=== PATIENT | female | born 1995 | race Two or more races ===

== ENCOUNTER → 2019-02-17 | Outpatient (CLI) | payer OTHER ==
[2019-02-17 16:34] LABS: BASO % 0 % (0-3); EOS # 0.2 x10^3/uL (0.0-0.7); EOS % 2 % (0-3); HEMATOCRIT 36.2 % (36.0-47.0); HEMOGLOBIN 12.2 g/dL (12.0-15.5); LYMPH # 2.4 x10^3/uL (1.0-4.8); LYMPH % 27 % (24-48); MEAN CORPUSCULAR HEMOGLOBIN 30 pg (25-35); MEAN CORPUSCULAR HGB CONC 34 g/dL (31-37); MEAN CORPUSCULAR VOLUME 90 fL (79-100); MONO # 0.4 x10^3/uL (0.0-1.1); MONO % 4 % (0-9); NEUT # 5.9 x10^3/uL (1.8-7.7); NEUT % 67 % (31-73); PLATELET COUNT 271 x10^3/uL (140-400); RED BLOOD COUNT 4.02 x10^6/uL (3.50-5.40); RED CELL DISTRIBUTION WIDTH 14.2 % (11.5-14.5); WHITE BLOOD COUNT 8.8 x10^3/uL (4.0-11.0)
[2019-02-17 17:04] LABS: PREG TEST PT QUAL POSITIVE (NEG)
== END | disposition home or self-care (01) ==
LOC: LAB 16:08
PROVIDERS: ATTEND Obstetrics & Gynecology
DX: O03.9 Complete or unspecified spontaneous abortion without complication (principal)
CPT/HCPCS: 36415; 84703; 85025

== ENCOUNTER 2020-03-21 10:57 | Observation (INO) | payer OTHER | END 2020-03-21 11:17 | disposition home or self-care (01) | LOC: 3 SO LND 10:57 | PROVIDERS: ADMIT Obstetrics & Gynecology; ATTEND Obstetrics & Gynecology | DX: O10.913 Unspecified pre-existing hypertension complicating pregnancy, third trimester (principal); Z3A.33 33 weeks gestation of pregnancy | CPT/HCPCS: 59025; G0378; G0379 ==

== ENCOUNTER 2020-04-04 10:32 | Observation (INO) | payer OTHER ==
[2020-04-04] MEDS ORDERED: IV RINGERS,LACTATED 1000ML 1,000 ML IV SCH (11:15)
--- NOTE | 2020-04-04 12:27 | RAD ---
EXAM: Obstetrics sonogram; biophysical profile. HISTORY: Gestational hypertension. weight assessment. COMPARISON: None. TECHNIQUE: Multiple grayscale images, color Doppler, and M-mode images of the uterus are obtained. FINDINGS: There is a single intrauterine gestation in cephalic presentation. The placenta grade 1 and anterior in location without evidence of placenta previa. The amount of amniotic fluid appears appropriate. A mniotic fluid index is 8.7 cm. The cervix is obscured Biometrical data: BPD = 8.72 cm for 35 weeks 1 days. HC = 31.67 cm for 35 weeks 4 days. AC = 32.79 cm for 36 weeks 5 days. FL = 7.29 cm for 30 weeks 2 days. HC/AC ratio = 0.97. Overall, the estimated sonographic gestational age is 36 weeks and 1 day for an estimated date of del sabi of 05/01/2020. The estimated date of delivery provided by the last menstrual period is 05/06/2020 . Estimated weight is 2970 grams. This corresponds with the 63rd percentile for a gestational age of 35 weeks and 3 days based on LMP. The estimated heart rate is 132 beats per minute. The anatomy is not formally assessed. T he maternal adnexal regions are not formally assessed. There is normal breathing motion, body motion and tone and there is normal amniotic fluid volume. This corresponds with a biophysical profile of 10/21. The biophysical profile exam time was 15 minutes. IMPRESSION: 1. Single intrauterine fetus in cephalic presentation with a normal heart rate and gestational age ba sed on ultrasound measurements 36 weeks and 1 day. The estimated weight is at the 63rd percenti le for a gestational age of 35 weeks and 3 days based on LMP. 2. Normal biophysical profile of 10/21. Electronically signed by: Makenna Gtz MD (04/04/2020 12:25 PM) [id number]
== END 2020-04-04 11:55 | disposition home or self-care (01) ==
LOC: 3 SO LND 10:32
PROVIDERS: ADMIT Obstetrics & Gynecology; ATTEND Obstetrics & Gynecology
DX: O13.3 Gestational [pregnancy-induced] hypertension without significant proteinuria, third trimester (principal); Z3A.35 35 weeks gestation of pregnancy
CPT/HCPCS: 59025; 76815; 76819; G0378; G0379

== ENCOUNTER 2020-04-17 15:20 | Inpatient (IN) | payer OTHER ==
[~2020-04-17] VITALS: Ht 172.7 cm; Wt 84.4 kg
[2020-04-17 16:08] LABS: BILIRUBIN,URINE NEGATIVE (NEG); CLARITY,URINE CLEAR; COLOR,URINE YELLOW; NITRITE,URINE NEGATIVE (NEG); PH,URINE 7.5 (<5.0-8.0); PROTEIN,URINE 30 mg/dL (NEG-TRACE)
[2020-04-17 16:11] LABS: CREATININE,RANDOM URINE 77.8 mg/dL (Not Establ.)
[2020-04-17 16:35] LABS: BASO # 0.1 x10^3/uL (0.0-0.2); BASO % 1 % (0-3); EOS % 0 % (0-3); HEMATOCRIT 29.6 % (36.0-47.0); HEMOGLOBIN 10.3 g/dL (12.0-15.5); LYMPH # 1.3 x10^3/uL (1.0-4.8); LYMPH % 11 % (24-48); MEAN CORPUSCULAR HEMOGLOBIN 30 pg (25-35); MEAN CORPUSCULAR HGB CONC 35 g/dL (31-37); MEAN CORPUSCULAR VOLUME 86 fL (79-100); MONO # 0.6 x10^3/uL (0.0-1.1); MONO % 5 % (0-9); NEUT # 10.3 x10^3/uL (1.8-7.7); NEUT % 83 % (31-73); PLATELET COUNT 237 x10^3/uL (140-400); RED BLOOD COUNT 3.45 x10^6/uL (3.50-5.40); RED CELL DISTRIBUTION WIDTH 14.5 % (11.5-14.5); WHITE BLOOD COUNT 12.3 x10^3/uL (4.0-11.0)
[2020-04-17] MEDS ORDERED: ACETAMINOPHEN 325 MG TABLET. PO PRN (16:45)
[2020-04-17] MEDS ORDERED: 0.9 % SODIUM CHLORIDE 10 ML DISP.SYRIN. IV PRN (16:45)
[2020-04-17] MEDS ORDERED: IBUPROFEN 400 MG TABLET. PO PRN (16:45)
[2020-04-17] MEDS ORDERED: fentaNYL PF VIAL 100 MCG/2 ML VIAL IVP PRN (16:45)
[2020-04-17] MEDS ORDERED: OXYTOCIN 30 UNIT/500 ML PREMIX 500 ML IV PRN (16:45)
[2020-04-17] MEDS ORDERED: MAGNESIUM SULFATE 2GM 50 ML IV ONE (16:45)
[2020-04-17] MEDS ORDERED: LIDOCAINE 1% PF 30 ML VIAL. INJ PRN (16:45)
[2020-04-17] MEDS ORDERED: MAGNESIUM SULFATE 4GM 100 ML IV ONE (16:45)
[2020-04-17 17:00] LABS: ALBUMIN 2.6 g/dL (3.4-5.0); ALBUMIN/GLOBULIN RATIO 0.6 (1.0-1.7); CALCIUM 8.9 mg/dL (8.5-10.1); CREATININE 0.5 mg/dL (0.6-1.0); GFR 149.1; POTASSIUM 3.4 mmol/L (3.5-5.1); TOTAL BILIRUBIN 0.3 mg/dL (0.2-1.0); TOTAL PROTEIN 6.7 g/dL (6.4-8.2)
[2020-04-17] MEDS ORDERED: DINOPROSTONE 10 MG SUPP.VAG VG ONE (18:00)
[2020-04-17] MEDS: IV RINGERS,LACTATED 1000ML 1,000 ML IV PRN (18:42)
--- NOTE | 2020-04-17 19:00 | NUR ---
24YO C EDC 05/03/20 AT 37.5 WEEKS GESTATION PRESENTS FROM DOCTORS OFFICE FOR PIH WORKUP AND INDUCTION OF LABOR. ADMITTED TO LABOR AND DELIVERY FOR CERVIDIL AND PITOCIN INDUCTION OF LABOR. Addendum: 04/18/20 at 2218 by LIZABETH WELLS RN ADMITTED AND INDUCED FOR CHRONIC HYPERTENSION.
[2020-04-17] MEDS: MAGNESIUM SULFATE 20GM 500 ML IV SCH (20:03)
[2020-04-18] MEDS: IV RINGERS,LACTATED 1000ML 1,000 ML IV PRN (04:35)
[2020-04-18] MEDS ORDERED: OXYTOCIN 30 UNIT/500 ML PREMIX 500 ML IV PRN ×2 (06:00→16:45)
[2020-04-18] MEDS: MAGNESIUM SULFATE 20GM 500 ML IV SCH ×2 (06:25→16:42)
--- NOTE | 2020-04-18 08:43 | PDOC1 ---
OB - History Hx of Present Care: Good Care Ultrasounds: Normal mid trimester US Obstetrical Complications: Pre-eclampsia Medical Complications: Other (CHTN) Past Family/Social History * Past Medical, Surgical, Family and Obstetric Histories reviewed from chart. Rubella: Immune RPR/VDRL: Negative GBS Status: Negative HBsAG: Negative OB - Chief Complaint & HPI Date of Admission: Date of Admission: Apr 17, 2020 at 15:20 Chief Complaint/History : 4 Para: 1 EGA: 37 Reason for admission: induction of labor (preeclampsia) Admission Nurse Assessment Rev: Yes OB - Admission Exam Physical Exam HEENT: Normal Heart: Regular Rate Lungs: Clear Abdomen: Gravid, Non tender, Soft Extremities: Edema Reflexes: Normal Cervical Dilatation: 2cm Effacement: 50% Station: -3 Membranes: Intact Heart Rate: Normal Accelerations: Accelerations Present Decelerations: No decelerations Contractions on Admission: None Text A: 37 wks IUP CHTN with superimposed preeclampsia P: Admit for IOL secondary to CHTN with superimposed preeclampsia. Start magnesium sulfate. Cervidil for cervical ripening, then pitocin in am. YULIET KAUFFMAN Jr, MD Apr 18, 2020 08:43
--- NOTE | 2020-04-18 16:33 | PDOC ---
VAGINAL DELIVERY DATE DATE: 04/18/20 TIME: 16:32 : 4 Para: 2 EGA: 37 VAGINAL DELIVERY: VTX VACCUM ASSISTED: No PLACENTA: Spontaneous 8/9 SEX: Male WEIGHT Weight [ pending ] Nuchal Cord: No Amniotic Fluid: Clear PAIN: Natural EPISIOTOMY: No EXTENSION: No EBL 300 ml COMPLICATIONS none CONDITION pt. stable Signs of Intrauterine Infectio: None Shoulder Dystocia: No YULIET KAUFFMAN Jr, MD Apr 18, 2020 16:33
[2020-04-18] MEDS ORDERED: TDaP (Adacel) per PROTOCOL. MC PRN (16:45)
[2020-04-18] MEDS ORDERED: 0.9 % SODIUM CHLORIDE 10 ML DISP.SYRIN. IV PRN (16:45)
[2020-04-18] MEDS ORDERED: ZOLPIDEM 5 MG TABLET. PO PRN (16:45)
[2020-04-18] MEDS ORDERED: MMR per PROTOCOL. MC PRN (16:45)
[2020-04-18] MEDS ORDERED: oxyCODONE/APAP 5/325 1 TAB TABLET PO PRN (16:45)
[2020-04-18] MEDS ORDERED: HYDROCORTISONE 1% TOPICAL OINTMENT 30GM TUBE. TP PRN (16:45)
[2020-04-18] MEDS ORDERED: ACETAMINOPHEN 325 MG TABLET. PO PRN (16:45)
[2020-04-18] MEDS ORDERED: MAGNESIUM HYDROXIDE 2,400 MG/30 ML ORAL.SUSP. PO PRN (16:45)
[2020-04-18] MEDS ORDERED: SIMETHICONE 80 MG TAB.CHEW PO PRN (16:45)
[2020-04-18] MEDS ORDERED: PHENYLEPH/MINERAL OIL/PETROLAT RECTAL OINTMENT TUBE. RC PRN (16:45)
[2020-04-18] MEDS ORDERED: diphenhydrAMINE HCL 25 MG CAPSULE PO PRN (16:45)
[2020-04-18] MEDS ORDERED: BENZOCAINE 20% TOPICAL AEROSOL SPRAY 57GM CAN. TP PRN (16:45)
[2020-04-18] MEDS ORDERED: MAG HYDROX/ALUMINUM HYD/SIMETH 30 ML ORAL.SUSP PO PRN (16:45)
[2020-04-18] MEDS: IBUPROFEN 400 MG TABLET. PO PRN (17:12)
[2020-04-18 20:00] VITALS: BP 119/73
[2020-04-18 21:00] VITALS: BP 135/72
[2020-04-18 22:00] VITALS: BP 126/64
[2020-04-18 23:00] VITALS: BP 131/88
[2020-04-19] VITALS (20 sets, daily range): BP systolic 110–139; BP diastolic 55–81
[2020-04-19] MEDS: IBUPROFEN 400 MG TABLET. PO PRN ×2 (02:03→20:34)
[2020-04-19] MEDS: MAGNESIUM SULFATE 20GM 500 ML IV SCH ×2 (02:08→12:48)
[2020-04-19] MEDS: IV RINGERS,LACTATED 1000ML 1,000 ML IV PRN (07:04)
[2020-04-19 08:12] LABS: BASO % 0 % (0-3); EOS % 0 % (0-3); HEMOGLOBIN 9.4 g/dL (12.0-15.5); LYMPH # 1.6 x10^3/uL (1.0-4.8); LYMPH % 13 % (24-48); MEAN CORPUSCULAR HEMOGLOBIN 30 pg (25-35); MEAN CORPUSCULAR HGB CONC 34 g/dL (31-37); MEAN CORPUSCULAR VOLUME 88 fL (79-100); MONO # 0.8 x10^3/uL (0.0-1.1); MONO % 6 % (0-9); NEUT # 10.4 x10^3/uL (1.8-7.7); NEUT % 81 % (31-73); PLATELET COUNT 197 x10^3/uL (140-400); RED BLOOD COUNT 3.19 x10^6/uL (3.50-5.40); RED CELL DISTRIBUTION WIDTH 14.4 % (11.5-14.5); WHITE BLOOD COUNT 12.9 x10^3/uL (4.0-11.0)
[2020-04-19 08:52] LABS: ALBUMIN 2.1 g/dL (3.4-5.0); ALBUMIN/GLOBULIN RATIO 0.6 (1.0-1.7); CALCIUM 7.3 mg/dL (8.5-10.1); CREATININE 0.4 mg/dL (0.6-1.0); GFR 192.9; POTASSIUM 3.2 mmol/L (3.5-5.1); TOTAL BILIRUBIN 0.2 mg/dL (0.2-1.0); TOTAL PROTEIN 5.5 g/dL (6.4-8.2)
[2020-04-19] MEDS ORDERED: MULTIVITAMIN with MINERAL TABLET. PO SCH (09:00)
--- NOTE | 2020-04-19 09:04 | PDOC ---
OB Progress Note Date of Service 04/19/20 Time of Evaluation 0900 Notes Pt. feeling well. No c/o H/A, CP or SOB. Good urine output. Lab Laboratory Tests Test 04/17/20 15:50 04/17/20 16:25 04/17/20 18:30 04/17/20 19:10 Urine Collection Type Unknown Urine Color Yellow Urine Clarity Clear Urine pH 7.5 (<5.0-8.0) Urine Specific [place] 1.020 (1.000-1.030) Urine Protein 30 mg/dL (NEG-TRACE) Urine Glucose (UA) Negative mg/dL (NEG) Urine Ketones (Stick) Negative mg/dL (NEG) Urine Blood Large (NEG) Urine Nitrite Negative (NEG) Urine Bilirubin Negative (NEG) Urine Urobilinogen Dipstick 1.0 mg/dL (0.2 mg/dL) Urine Leukocyte Esterase Small (NEG) Urine Random Creatinine 77.8 mg/dL (Not Establ.) Urine Random Total Protein 36.2 mg/dL (Not Establ.) Urine Protein/Creatinine Ratio 465 mg/g (0-200) White Blood Count 12.3 x10^3/uL (4.0-11.0) Red Blood Count 3.45 x10^6/uL (3.50-5.40) Hemoglobin 10.3 g/dL (12.0-15.5) Hematocrit 29.6 % (36.0-47.0) Mean Corpuscular Volume 86 fL (79-100) Mean Corpuscular Hemoglobin 30 pg (25-35) Mean Corpuscular Hemoglobin Concent 35 g/dL (31-37) Red Cell Distribution Width 14.5 % (11.5-14.5) Platelet Count 237 x10^3/uL (140-400) Neutrophils (%) (Auto) 83 % (31-73) Lymphocytes (%) (Auto) 11 % (24-48) Monocytes (%) (Auto) 5 % (0-9) Eosinophils (%) (Auto) 0 % (0-3) Basophils (%) (Auto) 1 % (0-3) Neutrophils # (Auto) 10.3 x10^3/uL (1.8-7.7) Lymphocytes # (Auto) 1.3 x10^3/uL (1.0-4.8) Monocytes # (Auto) 0.6 x10^3/uL (0.0-1.1) Eosinophils # (Auto) 0.0 x10^3/uL (0.0-0.7) Basophils # (Auto) 0.1 x10^3/uL (0.0-0.2) Sodium Level 137 mmol/L (136-145) Potassium Level 3.4 mmol/L (3.5-5.1) Chloride Level 103 mmol/L (98-107) Carbon Dioxide Level 24 mmol/L (21-32) Anion Gap 10 (6-14) Blood Urea Nitrogen 9 mg/dL (7-20) Creatinine 0.5 mg/dL (0.6-1.0) Estimated GFR (Cockcroft-Gault) 149.1 BUN/Creatinine Ratio 18 (6-20) Glucose Level 101 mg/dL (70-99) Calcium Level 8.9 mg/dL (8.5-10.1) Total Bilirubin 0.3 mg/dL (0.2-1.0) Aspartate Amino Transf (AST/SGOT) 15 U/L (15-37) Alanine Aminotransferase (ALT/SGPT) 13 U/L (14-59) Alkaline Phosphatase 189 U/L (46-116) Total Protein 6.7 g/dL (6.4-8.2) Albumin 2.6 g/dL (3.4-5.0) Albumin/Globulin Ratio 0.6 (1.0-1.7) Treponema pallidum Antibody Nonreactive (Nonreactive) Coronavirus (PCR) Not detected (Not Detected) SARS-CoV-2 Antigen (Rapid) Negative (NEGATIVE) Test 04/19/20 08:05 White Blood Count 12.9 x10^3/uL (4.0-11.0) Red Blood Count 3.19 x10^6/uL (3.50-5.40) Hemoglobin 9.4 g/dL (12.0-15.5) Hematocrit 28.0 % (36.0-47.0) Mean Corpuscular Volume 88 fL (79-100) Mean Corpuscular Hemoglobin 30 pg (25-35) Mean Corpuscular Hemoglobin Concent 34 g/dL (31-37) Red Cell Distribution Width 14.4 % (11.5-14.5) Platelet Count 197 x10^3/uL (140-400) Neutrophils (%) (Auto) 81 % (31-73) Lymphocytes (%) (Auto) 13 % (24-48) Monocytes (%) (Auto) 6 % (0-9) Eosinophils (%) (Auto) 0 % (0-3) Basophils (%) (Auto) 0 % (0-3) Neutrophils # (Auto) 10.4 x10^3/uL (1.8-7.7) Lymphocytes # (Auto) 1.6 x10^3/uL (1.0-4.8) Monocytes # (Auto) 0.8 x10^3/uL (0.0-1.1) Eosinophils # (Auto) 0.0 x10^3/uL (0.0-0.7) Basophils # (Auto) 0.0 x10^3/uL (0.0-0.2) Laboratory Tests Test 04/19/20 08:05 White Blood Count 12.9 x10^3/uL (4.0-11.0) Red Blood Count 3.19 x10^6/uL (3.50-5.40) Hemoglobin 9.4 g/dL (12.0-15.5) Hematocrit 28.0 % (36.0-47.0) Mean Corpuscular Volume 88 fL (79-100) Mean Corpuscular Hemoglobin 30 pg (25-35) Mean Corpuscular Hemoglobin Concent 34 g/dL (31-37) Red Cell Distribution Width 14.4 % (11.5-14.5) Platelet Count 197 x10^3/uL (140-400) Neutrophils (%) (Auto) 81 % (31-73) Lymphocytes (%) (Auto) 13 % (24-48) Monocytes (%) (Auto) 6 % (0-9) Eosinophils (%) (Auto) 0 % (0-3) Basophils (%) (Auto) 0 % (0-3) Neutrophils # (Auto) 10.4 x10^3/uL (1.8-7.7) Lymphocytes # (Auto) 1.6 x10^3/uL (1.0-4.8) Monocytes # (Auto) 0.8 x10^3/uL (0.0-1.1) Eosinophils # (Auto) 0.0 x10^3/uL (0.0-0.7) Basophils # (Auto) 0.0 x10^3/uL (0.0-0.2) Medications Current Medications Sodium Chloride (Normal Saline Flush) 3 ml QSHIFT PRN IV AFTER MEDS AND BLOOD DRAWS; Start 04/17/20 at 16:45 Ringer's Solution 1,000 ml @ 125 mls/hr Q8H PRN IV PER PROTOCOL Last administered on 04/19/20at 07:04; Start 04/17/20 at 16:45 Fentanyl Citrate (Fentanyl 2ml Vial) 100 mcg PRN Q1HR PRN IVP Severe pain Last administered on 04/18/20at 14:56; Start 04/17/20 at 16:45 Acetaminophen (Tylenol) 650 mg PRN Q6HRS PRN PO MILD PAIN / TEMP > 100.3'F Last administered on 04/18/20at 08:09; Start 04/17/20 at 16:45; Stop 04/18/20 at 16:40; Status DC Lidocaine HCl (Xylocaine 1% Pf 30ml Vial) 30 ml 1X PRN PRN INJ SEE COMMENTS; Start 04/17/20 at 16:45; Stop 04/19/20 at 16:44 Oxytocin 500 ml @ 0 mls/hr CONT PRN IV SEE I/O RECORD Last administered on 04/18/20at 06:34; Start 04/18/20 at 06:00 Oxytocin 500 ml @ 0 mls/hr CONT PRN PRN IV Post delivery bleeding; Start 04/17/20 at 16:45 Ibuprofen (Motrin) 800 mg PRN Q6HRS PRN PO INFLAMMATION; Start 04/17/20 at 16:45; Stop 04/18/20 at 16:40; Status DC Dinoprostone (Cervidil) 10 mg 1X ONCE VG Last administered on 04/17/20at 20:03; Start 04/17/20 at 18:00; Stop 04/17/20 at 18:01; Status DC Magnesium Sulfate 100 ml @ 25 mls/hr 1X ONCE IV Last administered on 04/17/20at 19:36; Start 04/17/20 at 16:45; Stop 04/17/20 at 20:44; Status DC Magnesium Sulfate 50 ml @ 25 mls/hr 1X ONCE IV Last administered on 04/17/20at 19:37; Start 04/17/20 at 16:45; Stop 04/17/20 at 18:44; Status DC Magnesium Sulfate 500 ml @ 50 mls/hr Q10H IV Last administered on 04/19/20at 02:08; Start 04/17/20 at 16:45 Sodium Chloride (Normal Saline Flush) 10 ml QSHIFT PRN IV AFTER MEDS AND BLOOD DRAWS; Start 04/18/20 at 16:45 Oxytocin 500 ml @ 62.5 mls/hr CONT PRN IV SEE I/O RECORD; Start 04/18/20 at 16:45; Stop 04/19/20 at 00:44; Status DC Acetaminophen (Tylenol) 650 mg PRN Q6HRS PRN PO MILD PAIN / TEMP > 100.3'F; Start 04/18/20 at 16:45 Ibuprofen (Motrin) 800 mg PRN Q8HRS PRN PO INFLAMMATION/PAIN PREVENTION Last administered on 04/19/20at 02:03; Start 04/18/20 at 16:45 Docusate Sodium (Colace) 100 mg PRN BID PRN PO CONSTIPATION; Start 04/18/20 at 16:45 Magnesium Hydroxide (Milk Of Magnesia) 2,400 mg PRN DAILY PRN PO CONSTIPATION; Start 04/18/20 at 16:45 Al Hydroxide/Mg Hydroxide (Mylanta Plus Xs) 30 ml PRN Q4HRS PRN PO HEARTBURN / GAS; Start 04/18/20 at 16:45 Simethicone (Gas-X) 80 mg PRN AFTMEALHC PRN PO GAS / BLOATING; Start 04/18/20 at 16:45 Diphenhydramine HCl (Benadryl) 25 mg PRN Q6HRS PRN PO ITCHING; Start 04/18/20 at 16:45 Benzocaine (Americaine) 1 spray PRN QID PRN TP TOPICAL PAIN; Start 04/18/20 at 16:45 Phenyleph/Shark Oil/Min Oil/Petrol (Preparation H) 1 kristal PRN QID PRN RC RECTAL PAIN; Start 04/18/20 at 16:45 Hydrocortisone (Cortaid) 1 kristal PRN QID PRN TP PERINEAL PAIN; Start 04/18/20 at 16:45 Ferrous Sulfate (Feosol) 325 mg BIDWMEALS PO ; Start 04/19/20 at 08:00 Zolpidem Tartrate (Ambien) 5 mg PRN QHS PRN PO INSOMNIA, MAY REPEAT X1; Start 04/18/20 at 16:45 Info (Do NOT chart on this placeholder) 1 ea 1X PRN PRN MC SEE COMMENTS; Start 04/18/20 at 16:45 Info (Do NOT chart on this placeholder) 1 ea 1X PRN PRN MC SEE COMMENTS; Start 04/18/20 at 16:45 Oxycodone/ Acetaminophen (Percocet 5/325) 2 tab PRN Q4HRS PRN PO MODERATE PAIN, SEVERE PAIN; Start 04/18/20 at 16:45 Multivitamins (Thera M Plus) 1 tab DAILY PO ; Start 04/19/20 at 09:00 Exam Abd:soft, non tender, fundus firm Assessment PPD#1 s/p Preeclampsia Plan of Care: Continue current Tx, Mgmt (D/c magnesium sulfate 1600. ) YULIET KAUFFMAN Jr, MD Apr 19, 2020 09:04
--- NOTE | 2020-04-19 18:05 | NUR ---
dc'd the saline maren in rt wrist
[2020-04-19] MEDS: DOCUSATE SODIUM 100 MG CAPSULE. PO PRN (20:31)
[2020-04-19] MEDS: FERROUS SULFATE 325 MG TABLET. PO SCH (20:31)
[2020-04-20 00:11] VITALS: BP 105/56
[2020-04-20 05:00] VITALS: BP 121/80
[2020-04-20] MEDS: IBUPROFEN 400 MG TABLET. PO PRN ×2 (08:25→15:59)
[2020-04-20] MEDS: FERROUS SULFATE 325 MG TABLET. PO SCH (08:25)
[2020-04-20] MEDS: DOCUSATE SODIUM 100 MG CAPSULE. PO PRN ×2 (08:25→15:59)
[2020-04-20 10:09] VITALS: BP 129/74
[2020-04-20 14:10] VITALS: BP 115/75
--- NOTE | 2020-04-20 15:16 | PDOC3 ---
OB DISCHARGE SUMMARY DATE OF ADMISSION: 04/17/20 DATE OF DISCHARGE: 04/20/20 REASON FOR ADMISSION: Induction of labor (preeclampsia) INTRAPARTUM PROCEDURES: Spontanous Vag Deliv DISCHARGE DIAGNOSIS: Preclampsia, Term Delivered DISCHARGE INFORMATION: Activity (ad maddie), Diet (regular), Instructions (pelvic rest x 6 wks) HOSPITAL COURSE Term gestation with preeclampsia delivered vaginally without complications. YULIET KAUFFMAN Jr, MD Apr 20, 2020 15:16
[2020-04-20] MEDS ORDERED: IBUP-1027 PO (15:18)
--- NOTE | 2020-04-20 15:18 | DISCH ---
DISCHARGE INSTRUCTIONS Condition on Discharge Condition on Discharge: Stable Activity After Discharge Activity Instructions for Disc: Activity as tolerated Lifting Instructions after Dis: No heavy lifting Driving Instructions after Dis: Do not drive today Diet after Discharge Diet after Discharge: Regular Contacting the DRJose Enrique after DC Call your doctor for: Concerns you may have Follow-Up Follow up with: Dr. Moncada in 2 wks YULIET MONCADA Jr, MD Apr 20, 2020 15:18
[2020-04-20 15:50] VITALS: BP 127/74
--- NOTE | 2020-04-20 16:00 | NUR ---
Pt. dc'd to home. Pt. labial swelling much improved and none appreciated on discharge, labia soft. Mom states looks and feels much better. Mom states voiding without difficulty. Written and verbal discharge instructions given, v/u. Mother plans to follow-up with Dr. Moncada in 2 weeks. Mother ambulated to personal vehicle accompanied by RN and .
== END 2020-04-20 16:00 | disposition home or self-care (01) | DRG 807 ==
LOC: 3 SO LND 15:20 → OBSVTOIN 16:57 → 3 SO LND 18:59
PROVIDERS: ADMIT Obstetrics & Gynecology; ATTEND Obstetrics & Gynecology
PROC: 3E033VJ Introduction of Other Hormone into Peripheral Vein, Percutaneous Approach (ICD-10-PCS; 2020-04-17)
PROC: 10E0XZZ Delivery of Products of Conception, External Approach (ICD-10-PCS; principal; 2020-04-18)
PROC: 3E0P7VZ Introduction of Hormone into Female Reproductive, Via Natural or Artificial Opening (ICD-10-PCS; 2020-04-18)
DX: O14.94 Unspecified pre-eclampsia, complicating childbirth (principal); Z37.0 Single live birth; Z3A.37 37 weeks gestation of pregnancy; Z20.822 Contact with and (suspected) exposure to COVID-19
CPT/HCPCS: 36415; 80053; 81003; 82570; 84156; 85025; 86592; 86850; 86900; 86901; 87426; 88307; G0378; G0379; J2590; J3010; J3475; J7120; U0003

== ENCOUNTER 2021-05-17 09:12 | Inpatient (IN) | payer OTHER ==
[~2021-05-17] VITALS: Ht 175.3 cm; Wt 85.0 kg
[~2021-05-17 09:12] MED LIST: IBUP-1027 PO
[2021-05-17] MEDS ORDERED: IV RINGERS,LACTATED 1000ML 1,000 ML IV SCH ×3 (09:30→16:30)
[2021-05-17 09:57] LABS: BILIRUBIN,URINE NEGATIVE (NEG); CLARITY,URINE HAZY; COLOR,URINE YELLOW; NITRITE,URINE NEGATIVE (NEG); PH,URINE 7.5 (<5.0-8.0); PROTEIN,URINE 30 mg/dL (NEG-TRACE)
[2021-05-17] MEDS ORDERED: TERBUTALINE 1 MG/ML VIAL. SQ PRN (10:00)
[2021-05-17] MEDS ORDERED: BUTORPHANOL 2 MG/ML VIAL. IVP PRN (10:00)
[2021-05-17] MEDS ORDERED: OXYTOCIN 30 UNIT/500 ML PREMIX 500 ML IV PRN ×2 (10:00→15:15)
[2021-05-17] MEDS ORDERED: 0.9 % SODIUM CHLORIDE 10 ML DISP.SYRIN. IV PRN ×2 (10:00→15:15)
[2021-05-17] MEDS ORDERED: LIDOCAINE 1% PF 30 ML VIAL. INJ PRN (10:00)
[2021-05-17] MEDS ORDERED: ACETAMINOPHEN 325 MG TABLET. PO PRN ×2 (10:00→15:15)
[2021-05-17 10:14] LABS: BACTERIA,URINE FEW /HPF (0-FEW)
[2021-05-17 10:26] VITALS: BP 114/69
[2021-05-17 10:51] LABS: BASO % 0 % (0-3); EOS % 0 % (0-3); HEMATOCRIT 33.8 % (36.0-47.0); HEMOGLOBIN 11.6 g/dL (12.0-15.5); LYMPH # 1.4 x10^3/uL (1.0-4.8); LYMPH % 10 % (24-48); MEAN CORPUSCULAR HEMOGLOBIN 31 pg (25-35); MEAN CORPUSCULAR HGB CONC 34 g/dL (31-37); MEAN CORPUSCULAR VOLUME 91 fL (79-100); MONO # 0.5 x10^3/uL (0.0-1.1); MONO % 4 % (0-9); NEUT % 86 % (31-73); PLATELET COUNT 165 x10^3/uL (140-400); RED BLOOD COUNT 3.71 x10^6/uL (3.50-5.40); RED CELL DISTRIBUTION WIDTH 14.5 % (11.5-14.5)
[2021-05-17] MEDS ORDERED: OXYTOCIN PREMIX 30 UNIT/500 ML NS BAG. IV ONE (11:15)
[2021-05-17] MEDS ORDERED: MORPHINE SULFATE 10 MG/ML VIAL. ONE ×2 (12:16→14:00)
[2021-05-17] MEDS ORDERED: miSOPROStol 200 MCG TABLET. ONE ×2 (13:44→14:00)
--- NOTE | 2021-05-17 14:21 | PDOC ---
CARPENTRY SPECIALIST PROGRESS NOTE Date of Service: DATE: 05/17/21 TIME: 14:13 Subjective: Doing well. Denies pain. Resting in bed, holding infant independently. Denies CP, SOA, palpitations, or near syncope. Objective: Objective: FF @ U, midline, scant lochia, haley in place with clear yellow urine to DD. Vital Signs: Vital Signs Date Time Temp Pulse Resp B/P (MAP) Pulse Ox O2 Delivery O2 Flow Rate FiO2 05/17/21 10:26 98.7 96 20 114/69 (84) 98.7 Vital Signs Date Time Temp Pulse Resp B/P (MAP) Pulse Ox O2 Delivery O2 Flow Rate FiO2 05/17/21 10: 98.7 96 20 114/69 (84) 98.7 Labs: Laboratory Tests Test 05/17/21 09:47 05/17/21 09:58 05/17/21 13:25 Urine Collection Type Unknown Urine Color Yellow Urine Clarity Hazy Urine pH 7.5 (<5.0-8.0) Urine Specific [place] 1.010 (1.000-1.030) Urine Protein 30 mg/dL (NEG-TRACE) Urine Glucose (UA) Negative mg/dL (NEG) Urine Ketones (Stick) 15 mg/dL (NEG) Urine Blood Large (NEG) Urine Nitrite Negative (NEG) Urine Bilirubin Negative (NEG) Urine Urobilinogen Dipstick 1.0 mg/dL (0.2 mg/dL) Urine Leukocyte Esterase Large (NEG) Urine RBC 6-10 /HPF (0-2) Urine WBC 11-20 /HPF (0-4) Urine Squamous Epithelial Cells Mod /LPF Urine Bacteria Few /HPF (0-FEW) Urine Mucus Mod /LPF White Blood Count 14.0 x10^3/uL (4.0-11.0) H Red Blood Count 3.71 x10^6/uL (3.50-5.40) Hemoglobin 11.6 g/dL (12.0-15.5) L Hematocrit 33.8 % (36.0-47.0) L Mean Corpuscular Volume 91 fL (79-100) Mean Corpuscular Hemoglobin 31 pg (25-35) Mean Corpuscular Hemoglobin Concent 34 g/dL (31-37) Red Cell Distribution Width 14.5 % (11.5-14.5) Platelet Count 165 x10^3/uL (140-400) Neutrophils (%) (Auto) 86 % (31-73) H Lymphocytes (%) (Auto) 10 % (24-48) L Monocytes (%) (Auto) 4 % (0-9) Eosinophils (%) (Auto) 0 % (0-3) Basophils (%) (Auto) 0 % (0-3) Neutrophils # (Auto) 12.0 x10^3/uL (1.8-7.7) H Lymphocytes # (Auto) 1.4 x10^3/uL (1.0-4.8) Monocytes # (Auto) 0.5 x10^3/uL (0.0-1.1) Eosinophils # (Auto) 0.0 x10^3/uL (0.0-0.7) Basophils # (Auto) 0.0 x10^3/uL (0.0-0.2) Treponema pallidum Antibody Nonreactive (Nonreactive) SARS-CoV-2 Antigen (Rapid) Negative (NEGATIVE) Laboratory Tests 05/17/21 09:58 Laboratory Tests 05/17/21 09:58 Physical Exam: GENERAL: No apparent distress. Alert and oriented. HEENT: Head normocephalic, atraumatic. NECK: Supple LUNGS: Clear to auscultation. HEART: RRR, S1, S2 present, pulses intact ABDOMEN: Soft, positive bowel sounds. EXTREMITIES: No cyanosis or edema. NEUROLOGIC: Normal speech, normal tone PSYCHIATRIC: Normal affect, normal mood. SKIN: No ulceration. Assessment & Plan: CNM at bedside to evaluate bleeding. RN reports EBL 400mL at delivery, manual removal of placenta. Subsequently with large bleeding during recovery period. Approximately 1200mL per RN report. Pt stable, in no apparent distress. Bleeding resolved at present. Discussed concerns regarding increased blood loss with patient, as well as increased risk for PP hemorrhage 2/2 retained/manually removed placenta. Will add methergine PO x 24 hours. XU GATICA CNM May 17, 2021 14:21
[2021-05-17] MEDS ORDERED: METHYLERGONOVINE MALEATE 0.2 MG TABLET PO SCH (14:30)
[2021-05-17] MEDS ORDERED: DEXAMETHASONE SOD PHOS 4 MG/ML VIAL ONE (14:49)
[2021-05-17] MEDS ORDERED: PROPOFOL 10 MG/ML (20ML) VIAL. IV ONE (14:49)
[2021-05-17] MEDS ORDERED: LIDOCAINE 2% PF 5 ML VIAL. ONE ×2 (14:49→15:19)
[2021-05-17] MEDS ORDERED: ONDANSETRON PF 4 MG/2 ML VIAL. ONE (14:49)
[2021-05-17] MEDS ORDERED: SUCCINYLCHOLINE 200 MG/10 ML VIAL. ONE (14:50)
[2021-05-17] MEDS ORDERED: ROCURONIUM 50 MG/5 ML VIAL. ONE (14:50)
[2021-05-17] MEDS ORDERED: MAG HYDROX/ALUMINUM HYD/SIMETH 30 ML ORAL.SUSP PO PRN (15:15)
[2021-05-17] MEDS ORDERED: ZOLPIDEM 5 MG TABLET. PO PRN (15:15)
[2021-05-17] MEDS ORDERED: oxyCODONE/APAP 5/325 1 TAB TABLET PO PRN (15:15)
[2021-05-17] MEDS ORDERED: MAGNESIUM HYDROXIDE 2,400 MG/30 ML ORAL.SUSP. PO PRN (15:15)
[2021-05-17] MEDS ORDERED: MMR per PROTOCOL. MC PRN (15:15)
[2021-05-17] MEDS ORDERED: PHENYLEPH/MINERAL OIL/PETROLAT RECTAL OINTMENT TUBE. RC PRN (15:15)
[2021-05-17] MEDS ORDERED: BENZOCAINE 20% TOPICAL AEROSOL SPRAY 57GM CAN. TP PRN (15:15)
[2021-05-17] MEDS ORDERED: HYDROCORTISONE 1% TOPICAL OINTMENT 30GM TUBE. TP PRN (15:15)
[2021-05-17] MEDS ORDERED: TDaP (BOOSTRIX) per PROTOCOL. MC PRN (15:15)
[2021-05-17] MEDS ORDERED: SIMETHICONE 80 MG TAB.CHEW PO PRN (15:15)
[2021-05-17] MEDS ORDERED: diphenhydrAMINE HCL 25 MG CAPSULE PO PRN (15:15)
[2021-05-17] MEDS ORDERED: fentaNYL PF VIAL 100 MCG/2 ML VIAL ONE (15:17)
--- NOTE | 2021-05-17 15:18 | PDOC1 ---
EMERGENCY MEDICAL TECHNICIAN BASIC H&P Date of Admission: Date of Admission: May 17, 2021 at 09:12 History of Present Illness: EDC: 05/23/21 LMP: 08/16/20 25y @ 39.1 by L=17 who presented to L&D with ctxs. The pt was found to be 6 cm dilated on presentation. PMH: Denies PSH: cholecystectomy Meds: PNV All: NKDA OBHx: 2 x TSVD, 1 x AB SH: no tob, no EtOH FH: noncontributory Medications: Meds: Current Medications Medications (Trade) Dose Ordered Sig/Marc Route PRN Reason Start Time Stop Time Status Last Admin Dose Admin Ringer's Solution 1,000 ml @ 125 mls/hr Q8H IV 05/17/21 09:30 05/17/21 15:01 DC 05/17/21 10:00 Oxytocin 500 ml @ 0 mls/hr CONT PRN PRN IV Post delivery bleeding 05/17/21 10:00 05/17/21 15:01 DC 05/17/21 14:03 Allergies: Coded Allergies: No Known Drug Allergies (Unverified , 03/21/20) Physical Exam: Vital Signs: Vital Signs Date Time Temp Pulse Resp B/P (MAP) Pulse Ox O2 Delivery O2 Flow Rate FiO2 05/17/21 10:26 98.7 96 20 114/69 (84) 98.7 PE: GENERAL: No apparent distress. Alert and oriented. HEENT: Head normocephalic, atraumatic. NECK: Supple LUNGS: Clear to auscultation. HEART: RRR, S1, S2 present, pulses intact ABDOMEN: Soft, positive bowel sounds. EXTREMITIES: No cyanosis or edema. NEUROLOGIC: Normal speech, normal tone PSYCHIATRIC: Normal affect, normal mood. SKIN: No ulceration. FHT: 150s +acels/no decels/mLTV [place]: 2-3 min SVE: 6/C/-1 Labs: Laboratory Tests Test 05/17/21 09:47 05/17/21 09:58 05/17/21 13:25 Urine Collection Type Unknown Urine Color Yellow Urine Clarity Hazy Urine pH 7.5 (<5.0-8.0) Urine Specific [place] 1.010 (1.000-1.030) Urine Protein 30 mg/dL (NEG-TRACE) Urine Glucose (UA) Negative mg/dL (NEG) Urine Ketones (Stick) 15 mg/dL (NEG) Urine Blood Large (NEG) Urine Nitrite Negative (NEG) Urine Bilirubin Negative (NEG) Urine Urobilinogen Dipstick 1.0 mg/dL (0.2 mg/dL) Urine Leukocyte Esterase Large (NEG) Urine RBC 6-10 /HPF (0-2) Urine WBC 11-20 /HPF (0-4) Urine Squamous Epithelial Cells Mod /LPF Urine Bacteria Few /HPF (0-FEW) Urine Mucus Mod /LPF White Blood Count 14.0 x10^3/uL (4.0-11.0) H Red Blood Count 3.71 x10^6/uL (3.50-5.40) Hemoglobin 11.6 g/dL (12.0-15.5) L Hematocrit 33.8 % (36.0-47.0) L Mean Corpuscular Volume 91 fL (79-100) Mean Corpuscular Hemoglobin 31 pg (25-35) Mean Corpuscular Hemoglobin Concent 34 g/dL (31-37) Red Cell Distribution Width 14.5 % (11.5-14.5) Platelet Count 165 x10^3/uL (140-400) Neutrophils (%) (Auto) 86 % (31-73) H Lymphocytes (%) (Auto) 10 % (24-48) L Monocytes (%) (Auto) 4 % (0-9) Eosinophils (%) (Auto) 0 % (0-3) Basophils (%) (Auto) 0 % (0-3) Neutrophils # (Auto) 12.0 x10^3/uL (1.8-7.7) H Lymphocytes # (Auto) 1.4 x10^3/uL (1.0-4.8) Monocytes # (Auto) 0.5 x10^3/uL (0.0-1.1) Eosinophils # (Auto) 0.0 x10^3/uL (0.0-0.7) Basophils # (Auto) 0.0 x10^3/uL (0.0-0.2) Treponema pallidum Antibody Nonreactive (Nonreactive) SARS-CoV-2 Antigen (Rapid) Negative (NEGATIVE) Laboratory Tests 05/17/21 09:58 Laboratory Tests 05/17/21 09:58 Assessment & Plan: A/P 25y @ 39.1 by L=17 1.) Active labor 2.) TDAP given 03/12/21 3.) Fetus cat I FHT 4.) DPS - Pvt insurance, consent signed 02/26/21 5.) GBS neg 6.) Girl - KURT Gonzalez MD May 17, 2021 15:18
--- NOTE | 2021-05-17 15:33 | PDOC4 ---
VAGINAL DELIVERY DATE DATE: 05/17/21 TIME: 15:33 TIME Patient delivered a viable female over intact perineum at 1146. Wt 8 lb 10 oz. Apgars 8/9. Placenta delivered spontaneously, intact with 3VC. No lacerations noted. After 30 minutes the placenta had not been delivered, despite gentle traction. Manual extraction was performed. The plane between the placental membranes and the uterine wall were . The placenta still could not be delivered, so pain meds were ordered to help the pt tolerate another attempt. Prior to giving the meds the placenta was delivered with traction. At that point good hemostasis noted. 20 U of Pit given with IVF. EBL 400 cc. WEIGHT Weight [ ] KURT SEBASTIAN MD May 17, 2021 15:33
[2021-05-17] MEDS ORDERED: NEOSTIGMINE METHYLSULFATE 5 MG/5 ML SYRINGE. ONE (15:51)
[2021-05-17] MEDS ORDERED: GLYCOPYRROLATE 1 MG/5 ML VIAL. ONE (15:52)
[2021-05-17] MEDS ORDERED: HYDROmorphone 2 MG/ML INJ. ONE (15:52)
[2021-05-17] MEDS ORDERED: KETOROLAC 30 MG/ML VIAL. ONE (15:58)
[2021-05-17] MEDS ORDERED: PROCHLORPERAZINE 10 MG/2 ML VIAL. IVP PRN (16:30)
[2021-05-17] MEDS ORDERED: HYDROmorphone 2 MG/ML INJ. IVP PRN (16:30)
[2021-05-17] MEDS ORDERED: MORPHINE SULFATE 2 MG/ML INJ. IVP PRN (16:30)
[2021-05-17] MEDS ORDERED: fentaNYL PF VIAL 100 MCG/2 ML VIAL IVP PRN ×2 (16:30)
--- NOTE | 2021-05-17 17:53 | PDOC4 ---
OPERATIVE NOTE: PreOp Dx: 1.) DPS, 2.) Multiparity PostOp Dx: same Procedure: PPBTL Surgeon: Emi Sebastian Anesthesia: GETA EBL: 50 cc Fluids: 800 cc UOP: 30 cc Findings: nml tubes and ovary Complications: none Pathology: bilateral tubal segments KURT SEBASTIAN MD May 17, 2021 17:53
--- NOTE | 2021-05-17 18:15 | OP ---
DATE OF SURGERY: 05/17/2021 PREOPERATIVE DIAGNOSES: 1. Desires permanent sterilization. 2. Multiparity. POSTOPERATIVE DIAGNOSES: 1. Desires permanent sterilization. 2. Multiparity. PROCEDURE: tubal ligation. SURGEON: Jp Oconnor MD ANESTHESIA: General endotracheal intubation. ESTIMATED BLOOD LOSS: 50 mL FLUIDS: 800 mL URINE OUTPUT: 30 mL FINDINGS: Normal tubes and ovaries. COMPLICATIONS: None. PATHOLOGY: Bilateral tubal segment. DESCRIPTION OF PROCEDURE: The patient was taken to the operating room where general endotracheal intubation was obtained without difficulty. The patient was prepped and draped in normal sterile fashion. A small transverse infraumbilical skin incision was made with a scalpel. The scalpel was then used to carry down the incision to the fascia. The fascia was then nicked in the midline and the fascial incision was extended with Fisher scissors. At that point, the peritoneum was grasped and entered sharply with Metzenbaum scissors. At that point, the right tube was followed out to the fimbria and then brought through the incision. A Rincon clamp was used to grasp the tube approximately 2 cm from the cornual region. A 3 cm segment of the tube was then ligated first by placing a free tie of 0 gut and then placing a second tie superior to this one. The tube was then excised superior to the second tie. The tube was sent to pathology. The tube was then made hemostatic with the Bovie. At that point, the tube was returned to the abdomen. Attention was then turned to the left tube, which was followed out to the fimbria. The tube was then grasped approximately 3 cm from the cornual region. A 3 cm segment of tube was then excised in similar fashion, first by placing 2 free ties of 0 plain gut, one superior to the other and then excising the portion superior to the second tie with Metzenbaum scissors. The edges were made hemostatic with the Bovie. The tube was then returned to the abdomen. The fascia was then closed with 0 Vicryl in a running fashion. The skin was closed with 4-0 Monocryl in a subcuticular manner. The patient tolerated the procedure well. Sponges, laps and needles were correct x 2. The patient was taken to recovery room in stable condition. MARIO DR: Kriss TID: [id number]
[2021-05-17 19:40] VITALS: BP 122/73
[2021-05-18 00:44] VITALS: BP 117/70
[2021-05-18] MEDS ORDERED: IV RINGERS,LACTATED 1000ML 1,000 ML IV SCH (02:45)
[2021-05-18 05:30] VITALS: BP 113/68
[2021-05-18 07:06] LABS: HEMATOCRIT 26.1 % (36.0-47.0); HEMOGLOBIN 9.1 g/dL (12.0-15.5); RED BLOOD COUNT 2.86 x10^6/uL (3.50-5.40); RED CELL DISTRIBUTION WIDTH 14.7 % (11.5-14.5); WHITE BLOOD COUNT 14.3 x10^3/uL (4.0-11.0)
[2021-05-18 08:31] VITALS: BP 103/65
[2021-05-18] MEDS: DOCUSATE SODIUM 100 MG CAPSULE. PO PRN ×2 (08:52→17:50)
[2021-05-18] MEDS: FERROUS SULFATE 325 MG TABLET. PO SCH ×2 (08:52→17:50)
[2021-05-18] MEDS: IBUPROFEN 400 MG TABLET. PO PRN ×2 (08:54→17:51)
[2021-05-18] MEDS ORDERED: PRENATAL MULTIVITAMIN TABLET. PO SCH (09:00)
[2021-05-18 12:05] VITALS: BP 109/71
--- NOTE | 2021-05-18 14:25 | PDOC ---
AUDIO/VISUAL OPERATOR PROGRESS NOTE Date of Service: DATE: 05/18/21 TIME: 14:22 Subjective: Doing well. independently. Tolerates activity, diet, and voiding without difficulty. Denies CP, SOA, palpitations or near syncope. Requests early d/c. Otherwise denies complaints. Objective: Objective: FF @ U, scant lochia. No edema. Vital Signs: Vital Signs Date Time Temp Pulse Resp B/P (MAP) Pulse Ox O2 Delivery O2 Flow Rate FiO2 05/17/21 10:26 98.7 96 20 114/69 (84) 98.7 05/17/21 15:32 99 Room Air 05/17/21 16:24 6 Vital Signs Date Time Temp Pulse Resp B/P (MAP) Pulse Ox O2 Delivery O2 Flow Rate FiO2 05/18/21 12:05 98.5 81 16 109/71 (84) Room Air 98.5 05/18/21 08:31 97 05/17/21 16:35 6 Labs: Laboratory Tests Test 05/18/21 06:30 White Blood Count 14.3 x10^3/uL (4.0-11.0) H Red Blood Count 2.86 x10^6/uL (3.50-5.40) L Hemoglobin 9.1 g/dL (12.0-15.5) L Hematocrit 26.1 % (36.0-47.0) L Mean Corpuscular Volume 91 fL (79-100) Mean Corpuscular Hemoglobin 32 pg (25-35) Mean Corpuscular Hemoglobin Concent 35 g/dL (31-37) Red Cell Distribution Width 14.7 % (11.5-14.5) H Platelet Count 147 x10^3/uL (140-400) Laboratory Tests 05/18/21 06:30 Laboratory Tests 05/18/21 06:30 Physical Exam: GENERAL: No apparent distress. Alert and oriented. HEENT: Head normocephalic, atraumatic. NECK: Supple LUNGS: Clear to auscultation. HEART: RRR, S1, S2 present, pulses intact ABDOMEN: Soft, positive bowel sounds. EXTREMITIES: No cyanosis or edema. NEUROLOGIC: Normal speech, normal tone PSYCHIATRIC: Normal affect, normal mood. SKIN: No ulceration. Assessment & Plan: PPD # 1 s/p POD# 1 s/p BTL Routine progression. D/C home today, ambulatory, independent with ADLs, in stable condition. Rx to pharmacy on chart. Discharge instructions reviewed to include pain/bleeding precautions, s/sx of mastitis, PPD vs. normal baby blues. Continue FeSO4 for anemia. RTO 6 weeks for routine PP f/u. XU GATICA CNM May 18, 2021 14:25
[2021-05-18] MEDS ORDERED: FERR325T72 PO (14:29)
[2021-05-18] MEDS ORDERED: IBUP-1027 PO (14:29)
[2021-05-18] MEDS ORDERED: DOCU-109 PO (14:29)
[2021-05-18 18:30] VITALS: BP 120/75
--- NOTE | 2021-05-18 18:55 | NUR ---
Dismissed per w/c to in car. Stable on feet .Reminded to call dr for 1 and 6 week checkup. Rx for colace motrin and iron given to pt .Home care instructions given with copies to pt
--- NOTE | 2021-05-21 17:07 | PATHOLOGY ---
[facility] Accession Number: [id number] . 01 Material submitted: . fallopian tube - BILATERAL FALLOPIAN TUBES. Modifiers: bilateral . 01 Clinical history: . BILATERAL TUBAL LIGATION . 02 Diagnosis: Bilateral tubal ligation: - Segments (2) of fallopian tube confirmed. (KRISTYNM:karen; 05/21/2021) MBR 05/21/2021 1550 Local . 02 Electronically signed: . Constantine Childers MD, Pathologist NPI- [id number] . 01 Gross description: . Fixative: Formalin Labeled: Bilateral fallopian tubes Fallopian tube #1 Measurements: 2.7 cm in length by 0.8 cm in diameter Fimbriated: No External surface: Purple-brock, wrinkled Cut Surface: Patent Fallopian tube #2 Measurements: 2.7 cm in length by 0.9 cm in diameter Fimbriated: No External surface: Purple-brock, wrinkled Cut Surface: Patent . A1 Division Service Manager fallopian tube #1 and fimbriated end A2 Division Service Manager fallopian tube #2 and fimbriated end ([facility]; 05/20/2021) NRI/NRI 05/20/2021 1658 Local . 02 Pathologist provided ICD-10: Z30.2 . 02 CPT . 471510 Specimen Comment: A courtesy copy of this report has been sent to [phone] Specimen Comment: Report sent to Performed at: 01 [facility] [address], [place] [id number] MD Lamont Siu MD Phone: [phone] Performed at: 02 [facility] [address] [place], [place] [id number] MD Constantine Childers MD Phone: [phone]
== END 2021-05-18 18:55 | disposition home or self-care (01) | DRG 798 ==
LOC: 3 SO LND 09:12 → OBSVTOIN 09:12 → 3 SO LND 18:00
PROVIDERS: ADMIT Obstetrics & Gynecology; ATTEND Obstetrics & Gynecology
PROC: 10E0XZZ Delivery of Products of Conception, External Approach (ICD-10-PCS; 2021-05-17)
PROC: 3E033VJ Introduction of Other Hormone into Peripheral Vein, Percutaneous Approach (ICD-10-PCS; 2021-05-17)
PROC: 0UB70ZZ Excision of Bilateral Fallopian Tubes, Open Approach (ICD-10-PCS; principal; 2021-05-17 15:30)
DX: O90.81 Anemia of the puerperium (principal); Z37.0 Single live birth; Z30.2 Encounter for sterilization; Z3A.39 39 weeks gestation of pregnancy; Z90.49 Acquired absence of other specified parts of digestive tract; Z20.822 Contact with and (suspected) exposure to COVID-19; D64.9 Anemia, unspecified
CPT/HCPCS: 36415; 81001; 85025; 85027; 86592; 86850; 86900; 86901; 87086; 87426; A4364; A4452; A4930; A6219; A6402; J0330; J0690; J1100; J1170; J1885; J2270; J2405; J2590; J2704; J2710; J3010; J3490; J7120; U0003; G0378